=== PATIENT | male | born 1960 | race Caucasian/White ===

== ENCOUNTER → 2017-10-15 08:10 | Outpatient (CLI) | payer OTHER, SELFPAY ==
[2017-10-15 09:41] LABS: Hemoglobin A1C% w Est Avg Glu 8.3 % (4.0-6.0)
[2017-10-15 09:52] LABS: BUN Creatinine Ratio 21.4 (6-22); Calcium 9.1 mg/dL (8.4-10.2); Estimated Glomerular Filt Rate > 60.0 mL/min (>60); Glucose 188 mg/dL (70-100); HEMOLYSIS < 15 (0-50); Potassium 3.8 mmol/L (3.4-5.1); Sodium 140 mmol/L (137-145)
== END ==
PROVIDERS: PCP Internal Medicine; Visit Provider Internal Medicine
DX: E11.65 Type 2 diabetes mellitus with hyperglycemia (principal)
CPT/HCPCS: 36415; 80048; 83036

== ENCOUNTER → 2018-01-14 08:08 | Outpatient (CLI) | payer OTHER, SELFPAY ==
[2018-01-14 09:09] LABS: Hemoglobin A1C% w Est Avg Glu 8.3 % (4.0-6.0)
[2018-01-14 09:18] LABS: BUN Creatinine Ratio 22.5 (6-22); Blood Urea Nitrogen 18 mg/dL (9-20); Calcium 9.4 mg/dL (8.4-10.2); Carbon Dioxide 28 mmol/L (22-32); Chloride 101 mmol/L (98-107); Estimated Glomerular Filt Rate > 60.0 mL/min (>60); Glucose 205 mg/dL (70-100); HEMOLYSIS 20 (0-50); Potassium 3.9 mmol/L (3.4-5.1); Sodium 140 mmol/L (137-145)
[2018-01-14 10:55] LABS: Microalbumi Creatinin Ratio Ur 1313.4 ug/mg CR (<30)
== END ==
PROVIDERS: PCP Internal Medicine; Visit Provider Internal Medicine
DX: E11.65 Type 2 diabetes mellitus with hyperglycemia (principal); E78.2 Mixed hyperlipidemia
CPT/HCPCS: 36415; 80048; 82043; 82570; 83036

== ENCOUNTER → 2018-04-08 08:25 | Outpatient (CLI) | payer OTHER, SELFPAY ==
[2018-04-08 10:53] LABS: Hemoglobin A1C% w Est Avg Glu 9.1 % (4.0-6.0)
[2018-04-08 10:56] LABS: Blood Urea Nitrogen 14 mg/dL (9-20); Calcium 9.2 mg/dL (8.4-10.2); Carbon Dioxide 26 mmol/L (22-32); Chloride 102 mmol/L (98-107); Estimated Glomerular Filt Rate > 60.0 mL/min (>60); Glucose 289 mg/dL (70-100); HEMOLYSIS < 15 (0-50); Potassium 3.8 mmol/L (3.4-5.1); Sodium 141 mmol/L (137-145)
== END ==
PROVIDERS: PCP Internal Medicine; Visit Provider Internal Medicine
DX: E11.65 Type 2 diabetes mellitus with hyperglycemia (principal); E78.2 Mixed hyperlipidemia
CPT/HCPCS: 36415; 80048; 83036

== ENCOUNTER → 2018-05-19 16:59 | Outpatient (CLI) | payer OTHER, SELFPAY ==
--- NOTE | 2018-05-19 17:00 | DI.RAD.S_ITS ---
PROCEDURE: XR SHOULDER RT MIN 2V INDICATIONS: right shoulder pain TECHNIQUE: 3 views of the shoulder were acquired. COMPARISON: None. FINDINGS: Bones: No fractures or dislocations. No suspicious bony lesions. Visualized ribs appear intact. Moderate to severe acromioclavicular degenerative narrowing is present. Soft tissues: No suspicious soft tissue calcifications. IMPRESSION: [id number] degenerative acromioclavicular narrowing. Dictated by: Malorie Pyle M.D. on 05/20/2018 at 8:15 Approved by: Malorie Pyle M.D. on 05/20/2018 at 8:19
== END ==
PROVIDERS: PCP Internal Medicine; Visit Provider Physician Assistant
DX: M25.511 Pain in right shoulder (principal); M19.011 Primary osteoarthritis, right shoulder
CPT/HCPCS: 73030

== ENCOUNTER 2018-05-26 09:14 | Emergency (ER) | payer OTHER, SELFPAY ==
[2018-05-26 09:21] VITALS: BP 157/113; PULSE 70; RESP 20; O2SAT 100; BMI 40.5
--- NOTE | 2018-05-26 09:22 | ED.BACK ---
HPI - Back Pain/Injury General Chief Complaint: Back Pain/Injury Stated Complaint: back pain Time Seen by Provider: 05/26/18 09:21 Source: patient Mode of arrival: ambulatory Limitations: no limitations History of Present Illness HPI Narrative: 58-year-old male here for evaluation of right upper back and shoulder pain. Also complaining of tingling down his arm. States it has been going on for the past month. Has been seen at the walk-in clinic received a shot of Toradol. He states that not help and if his symptoms. No new symptoms over the past month. No rashes. Scheduled to see his primary care doctor in approximately 1 week for this. Related Data Previous Rx's Medication Instructions Recorded fluticasone 2 spray INTRANASAL HS #1 inh 06/20/16 metformin 500 mg tablet 500 mg PO TID #90 tab 04/09/18 celecoxib [Celebrex] 100 mg PO BID #30 cap 05/26/18 cyclobenzaprine 10 mg PO TID PRN #20 tab 05/26/18 tramadol [Ultram] 50 mg PO Q6H PRN #20 tab 05/26/18 Allergies Allergy/AdvReac Type Severity Reaction Status Date / Time oxycodone [OXYCODONE] Allergy Mild becomes Verified 05/26/18 09:21 ill Penicillins [PENICILLINS] Allergy Mild Verified 05/26/18 09:21 Sulfa (Sulfonamide Allergy Mild Verified 05/26/18 09:21 Antibiotics) [SULFA (SULFONAMIDE ANTIBIOTICS)] atorvastatin [From LIPITOR] AdvReac Intermediate muscle Verified 05/26/18 09:21 pains, GIBBONS Review of Systems Constitutional Denies fever(s) and Denies headache(s) ENT Ears, Nose, Mouth, and Throat: Denies headache(s) and Reports neck pain Cardiovascular Denies chest pain and Denies dyspnea Respiratory Denies cough and Denies dyspnea Gastrointestinal Gastrointestinal: Denies abdominal pain, Denies nausea and Denies vomiting Musculoskeletal Reports back pain, Reports myalgias, Reports arthralgias, Reports neck pain, Denies numbness, Reports radiating pain into limb and Reports tingling Integumentary/Breasts Denies lesions and Denies rash Neurologic Denies headache(s), Denies numbness, Denies sensory deficit, Reports tingling and Reports paresthesias Hematologic/Lymphatic Comments: Not on anticoagulation PFSH Medical History Uncontrolled type 2 diabetes mellitus without complication, without long-term current use of insulin (Chronic 06/05/17) Mixed hyperlipidemia (Chronic 03/30/15) Trigeminal neuralgia of left side of face (Chronic) Obstructive sleep apnea syndrome (Chronic 03/30/15) Tinnitus (Chronic ~1989) Prostatitis (Resolved ~2013) Recurrent sinusitis (Resolved) Surgical History Anesthesia (Resolved) Status post hernia repair (~1998) Status post laparoscopic cholecystectomy (~2010) Social History marital status: number of children: 2 household members: spouse lives independently: Yes caregiver/support person: No housing: house pets and animals: Yes education level: master's degree occupational status: employed current occupational exposures/hazards: No eun/yazidism: [employer] travel history: over 6 months ago leisure activities: exercise, art and reading Smoking Status: Former smoker Tobacco: How many years used: 25 Smokeless tobacco user: other quit status: quit date established second hand exposure: Yes (Childhood) alcohol intake: current substance use type: does not use Exam Initial Vital Signs Initial Vital Signs: Vital Signs Pulse Rate 70 05/26/18 09:21 Respiratory Rate 20 05/26/18 09:21 Blood Pressure 157/113 H 05/26/18 09:21 Pulse Oximetry 100 05/26/18 09:21 Const General: cooperative, healthy appearing, No comfortable (Uncomfortable), well developed, well groomed and No acute distress Orientation: alert, awake and oriented x3 HENMT Head: normal to inspection, normocephalic and atraumatic Neck Other: Tenderness to palpation right paraspinal region. Negative Spurling's maneuver Resp Effort & Inspection: normal respiratory effort Auscultation: clear to auscultation bilaterally Cardio Rate: tachycardic Rhythm: regular rhythm Pulses: radial pulses present Back/Spine/Pelvis Other: Tenderness to palpation with muscle fullness over the right rhomboids and right levator scapulae. Skin Lesions: no lesions Rashes: no rashes Neuro General: alert, awake and oriented x3 Cognition: normal cognition Speech: speech normal Sensory Exam: no sensory deficits noted Extrem Other: Decreased range of motion right shoulder secondary to pain Course Orders Ordered: Discontinued Medications Diazepam (Valium) 5 mg PO NOW ONE Stop: 05/26/18 09:45 Last Admin: 05/26/18 10:13 Dose: 5 mg Hydromorphone HCl (Dilaudid) 2 mg IM NOW ONE Stop: 05/26/18 11:10 Last Admin: 05/26/18 11:21 Dose: 2 mg Vital Signs - 8 hr 05/26/18 09:21 05/26/18 10:33 05/26/18 11:54 Temperature 97.6 F 97.7 F Pulse Rate 70 58 L 113 H Respiratory Rate 20 20 19 Blood Pressure 157/113 H Blood Pressure [Left Arm] 146/90 H 179/94 H Pulse Oximetry 100 100 97 MDM - Back Pain/Injury MDM Narrative Medical decision making narrative: Patient received a Toradol injection at the walk-in clinic in the past he states that did nothing for his symptoms. I did do a trigger point injection of his right back with 1% lidocaine and 0.25% Marcaine. This was done at the area of greatest tenderness. He reported no improvement with the symptoms. He was given a Valium every also reports minimal improvement. The patient states that he did not want ?opioid ?pain medication. I informed him that there was not much more I can offer him how to the emergency department if he did not want pain medication. Will send home with a prescription for Flexeril. Will send home with a prescription for Ultram because he did not want something strong ?. Will also have him stop the anti-inflammatories start taking Celebrex. Will hold on x-rays for today. His symptoms have been going on for the past month and I feel that a bony pathology is unlikely. Patient is not allergic to oxycodone he states he just does not taking it. Discharge Plan Departure Patient Disposition: Home Clinical Impression: Spasm of thoracic back muscle Instructions: DI for Muscle Strain Activity Restrictions/Additional Instructions: I recommend you keep your follow-up appointment with your primary doctor in the coming week. I recommend you stop all anti-inflammatories such as Motrin or Naprosyn or ibuprofen and start taking the Celebrex as directed. The Flexeril is a muscle relaxer and this can make you drowsy. Same goes for the Ultram. No driving while taking these medications. Prescriptions: New cyclobenzaprine 10 mg tablet 10 mg PO TID PRN (Reason: muscle spasm) Qty: 20 RF: 0 tramadol [Ultram] 50 mg tablet 50 mg PO Q6H PRN (Reason: pain) Qty: 20 RF: 0 celecoxib [Celebrex] 100 mg capsule 100 mg PO BID Qty: 30 RF: 0 No Action fluticasone 16 GM spray,suspension 2 spray Intranasal HS Qty: 1 RF: 3 metformin 500 mg tablet 500 mg PO TID Qty: 90 RF: 3
[2018-05-26] MEDS: diazePAM 5 MG TABLET PO (10:13)
[2018-05-26 10:33] VITALS: BP 146/90; PULSE 58; RESP 20; TEMP 36.4; O2SAT 100
[2018-05-26] MEDS: HYDROMORPHONE 2 MG INJ IM (11:21)
[2018-05-26 11:54] VITALS: BP 179/94; PULSE 113; RESP 19; TEMP 36.5; O2SAT 97
== END 2018-05-26 12:34 | disposition home or self-care (01) ==
PROVIDERS: Emergency Provider Emergency Medicine; PCP Internal Medicine
DX: M62.830 Muscle spasm of back (principal)
CPT/HCPCS: 96372; 99282; 99283; J1170

== ENCOUNTER → 2018-06-08 13:20 | Outpatient (CLI) | payer OTHER, SELFPAY | PROVIDERS: PCP Internal Medicine; Visit Provider Internal Medicine | DX: M54.12 Radiculopathy, cervical region (principal); Z53.9 Procedure and treatment not carried out, unspecified reason ==

== ENCOUNTER 2018-06-08 14:10 | Emergency (ER) | payer OTHER, SELFPAY ==
[2018-06-08 14:10] VITALS: BP 174/93; PULSE 98; RESP 17; TEMP 36.4; O2SAT 99; BMI 40.6
--- NOTE | 2018-06-08 14:22 | PC.NURSE ---
pt was scheduled for MRI,pt was too big for machine so he didn't have it done. After bringing pt to room 8 he asked for water. I asked him to please wait until the dr could see him and make a decision on tx. Pt refused stated well I'm going to anyway.
--- NOTE | 2018-06-08 14:32 | ED.UPPEXIN ---
HPI - Extremity Injury (Upper) <SHAWNEE Ching - Last Filed: 06/08/18 22:00> General Chief Complaint: Extremity Injury, Upper Stated Complaint: RT SHOULDER PAIN Time Seen by Provider: 06/08/18 14:31 Source: patient Mode of arrival: ambulatory Limitations: no limitations History of Present Illness HPI narrative: 58-year-old male with history of radiculopathy to the thoracic spine here for complaint of pain into his right shoulder for the last month. He was scheduled for an MRI that was ordered by primary care provider Dr. Melgoza today however he states that he was unable to fit in the machine well and could not tolerate the discomfort. He is currently prescribed Dilaudid 2 mg tablets at home and he has been using them sparingly for pain as he does not like the side effects. MRI was unable to be obtained today. No known trauma to the right shoulder. He has been seen for this multiple times and has had multiple different medications prescribed and has not helped. He denies any other concerns or complaints at this timeframe. MD complaint: injury to: right and shoulder Related Data Home Medications Medication Instructions Recorded Confirmed dexamethasone 2 mg PO Q6H 06/08/18 06/08/18 Previous Rx's Medication Instructions Recorded fluticasone 2 spray INTRANASAL HS #1 inh 06/20/16 metformin 500 mg tablet 500 mg PO TID #90 tab 04/09/18 celecoxib [Celebrex] 100 mg PO BID #30 cap 05/26/18 cyclobenzaprine 10 mg PO TID PRN #20 tab 05/26/18 tramadol [Ultram] 50 mg PO Q6H PRN #20 tab 05/26/18 hydromorphone 2 mg tablet 2 mg PO Q4-6H PRN #20 tab 05/31/18 hydromorphone 2 mg PO Q4-6H PRN #15 tab 06/08/18 ondansetron 4 mg PO BID-TID PRN #15 tab 06/08/18 Allergies Allergy/AdvReac Type Severity Reaction Status Date / Time oxycodone [OXYCODONE] Allergy Mild becomes Verified 05/31/18 16:22 ill Penicillins [PENICILLINS] Allergy Mild Verified 05/31/18 16:22 Sulfa (Sulfonamide Allergy Mild Verified 05/31/18 16:22 Antibiotics) [SULFA (SULFONAMIDE ANTIBIOTICS)] atorvastatin [From LIPITOR] AdvReac Intermediate muscle Verified 05/31/18 16:22 pains, GIBBONS Review of Systems <SHAWNEE Ching - Last Filed: 06/08/18 22:00> Constitutional Denies chills, Denies fatigue, Denies fever(s), Denies lethargy and Denies weakness Eyes Denies change in vision, Denies eye discharge, Denies irritation and Denies loss of vision ENT Ears, Nose, Mouth, and Throat: Denies change in voice, Denies neck pain and Denies sore throat Cardiovascular Denies dyspnea and Denies dyspnea on exertion Respiratory Denies cough, Denies dyspnea, Denies dyspnea on exertion and Denies wheezing Gastrointestinal Gastrointestinal: Denies abdominal pain, Denies change in bowel habits, Denies diarrhea, Denies nausea and Denies vomiting Genitourinary Denies hematuria, Denies flank pain, Denies urinary incontinence and Denies urinary urgency Musculoskeletal Denies neck pain Comments: Right shoulder pain Integumentary/Breasts Denies pruritus, Denies erythema, Denies rash and Denies wounds Neurologic Denies confusion, Denies loss of vision and Denies weakness Psychiatric Denies anxiety, Denies confusion, Denies depression, Denies homicidal ideation and Denies suicidal ideation Endocrine Denies fatigue and Denies flushing Allergic/Immunologic Denies wheezing Exam <SHAWNEE Ching - Last Filed: 06/08/18 22:00> Initial Vital Signs Initial Vital Signs: Vital Signs Temperature 97.6 F 06/08/18 14:10 Pulse Rate 98 H 06/08/18 14:10 Respiratory Rate 17 06/08/18 14:10 Blood Pressure 174/93 H 06/08/18 14:10 Pulse Oximetry 99 06/08/18 14:10 Const General: cooperative and well developed Nutritional Appearance: well nourished Orientation: alert, awake, oriented x3 and not confused HENMT Mouth: oral mucosae normal and moist mucous membranes Eyes Conjunctivae: conjunctivae normal Sclera: sclerae normal Pupils: PERRL EOM: EOM intact bilaterally Resp Effort & Inspection: normal respiratory effort, able to speak in complete sentences, no respiratory distress and no use of accessory muscles Auscultation: clear to auscultation bilaterally, no rales, no rhonchi and no wheezes Cardio Rate: regular rate Rhythm: regular rhythm Heart Sounds: no click, no gallops, no murmurs and no rubs Pulses: normal peripheral pulses Skin General: no rashes or lesions noted, No jaundice and No petechiae Neuro General: alert, oriented x3, gait normal and no focal motor deficits Speech: speech normal Extrem General: full ROM, no clubbing, cyanosis or edema, no pedal edema and no calf tenderness Other: Left shoulder/thoracic back area with no signs of trauma. No deformities. Distal sensation is intact. Distal range of motion is intact. Distal pulses are intact. <Jeannette Sevilla DO - Last Filed: 06/09/18 21:53> Initial Vital Signs Initial Vital Signs: Vital Signs Temperature 97.6 F 06/08/18 14:10 Pulse Rate 98 H 06/08/18 14:10 Respiratory Rate 17 06/08/18 14:10 Blood Pressure 174/93 H 06/08/18 14:10 Pulse Oximetry 99 06/08/18 14:10 Course <SHAWNEE Ching - Last Filed: 06/08/18 22:00> Orders Ordered: Discontinued Medications Hydromorphone HCl (Dilaudid) 1 mg IV NOW ONE Stop: 06/08/18 14:48 Last Admin: 06/08/18 15:19 Dose: 1 mg Ondansetron HCl (Zofran) 4 mg IV NOW ONE Stop: 06/08/18 14:48 Last Admin: 06/08/18 15:19 Dose: 4 mg Vital Signs - 8 hr 06/08/18 14:10 06/08/18 15:44 06/08/18 16:37 Temperature 97.6 F Pulse Rate 98 H 102 H 90 Respiratory Rate 17 16 14 Blood Pressure 174/93 H 170/101 H Blood Pressure [Left Arm] 155/104 H Pulse Oximetry 99 98 96 <Jeannette Sevilla DO - Last Filed: 06/09/18 21:53> Orders Ordered: Discontinued Medications Hydromorphone HCl (Dilaudid) 1 mg IV NOW ONE Stop: 06/08/18 14:48 Last Admin: 06/08/18 15:19 Dose: 1 mg Ondansetron HCl (Zofran) 4 mg IV NOW ONE Stop: 06/08/18 14:48 Last Admin: 06/08/18 15:19 Dose: 4 mg Vital Signs - 8 hr 06/08/18 14:10 06/08/18 15:44 06/08/18 16:37 Temperature 97.6 F Pulse Rate 98 H 102 H 90 Respiratory Rate 17 16 14 Blood Pressure 174/93 H 170/101 H Blood Pressure [Left Arm] 155/104 H Pulse Oximetry 99 98 96 MDM - Extremity Injury (Upper) <Saud HolderSHAWNEE frank - Last Filed: 06/08/18 22:00> MDM Narrative Medical decision making narrative: Dilaudid and Zofran were given to him in the emergency room which helped his pain a little bit. Spoke with Dr. Melgoza who is trying to get him a MRI scheduled in the next couple of days at [facility] as a have a larger MRI. He is given refill of his Dilaudid along with Zofran to help with the nausea. MRI as scheduled. Follow up with primary care provider in the next few days after MRI. Return emergency room for any worsening symptoms Discharge Plan Departure Patient Disposition: Home Clinical Impression: Pain in right shoulder Discharge Date/Time: 06/08/18 16:39 Interventions: ED Discharge Assessment Last Done: 06/08/18 16:37 Instructions: DI for Shoulder Pain Activity Restrictions/Additional Instructions: MRI to the right shoulder when scheduled as soon as possible. Use pain medications as prescribed along with ondansetron to help with nausea. Follow up with primary care provider in the next few days for re-evaluation. For any worsening symptoms return to the emergency room. Prescriptions: New hydromorphone 2 mg tablet 2 mg PO Q4-6H PRN (Reason: pain) Qty: 15 RF: 0 ondansetron 4 mg tablet,disintegrating 4 mg PO BID-TID PRN (Reason: nausea and vomiting) Qty: 15 RF: 0 No Action fluticasone 16 GM spray,suspension 2 spray Intranasal HS Qty: 1 RF: 3 dexamethasone 2 mg tablet 2 mg PO Q6H RF: 0 metformin 500 mg tablet 500 mg PO TID Qty: 90 RF: 3 hydromorphone 2 mg tablet 2 mg PO Q4-6H PRN (Reason: pain) Qty: 20 RF: 0 cyclobenzaprine 10 mg tablet 10 mg PO TID PRN (Reason: muscle spasm) Qty: 20 RF: 0 tramadol [Ultram] 50 mg tablet 50 mg PO Q6H PRN (Reason: pain) Qty: 20 RF: 0 celecoxib [Celebrex] 100 mg capsule 100 mg PO BID Qty: 30 RF: 0 Referrals: Brent Melgoza MD [Primary Care Provider] - <Jeannette Sevilla DO - Last Filed: 06/09/18 21:53> Cosign ED Attending Rgoer Attestation: I was immediately available in the department for consultation. Documentation has been reviewed. I agree with assessment and plan.
[2018-06-08] MEDS: ONDANSETRON 4 MG/2 ML INJ IV (15:19)
[2018-06-08] MEDS: HYDROMORPHONE 1 MG INJ IV (15:19)
[2018-06-08 15:44] VITALS: BP 155/104; PULSE 102; RESP 16; O2SAT 98
--- NOTE | 2018-06-08 15:58 | PC.NURSE ---
some confusion about mri to be done in [facility] tomorrow. has been on phone regarding this with josephine
[2018-06-08 16:37] VITALS: BP 170/101; PULSE 90; RESP 14; O2SAT 96
== END 2018-06-08 16:39 | disposition home or self-care (01) ==
PROVIDERS: Emergency Provider Nurse Practitioner Family; PCP Internal Medicine
DX: M25.511 Pain in right shoulder (principal)
CPT/HCPCS: 96374; 96375; 99282; 99284; J1170; J2405

== ENCOUNTER → 2018-06-11 11:57 | Outpatient (CLI) | payer OTHER, SELFPAY ==
--- NOTE | 2018-06-11 12:45 | DI.CT.S_ITS ---
PROCEDURE: CT CERVICAL SPINE WO CON INDICATIONS: Neck and right shoulder pain TECHNIQUE: Noncontrast 3 mm thick sections acquired from the skull base to the T4 level. Sagittal and coronal reformats were then constructed. For radiation dose reduction, the following was used: automated exposure control, adjustment of mA and/or kV according to patient size. COMPARISON: None. FINDINGS: Image quality: Excellent. Bones: No fractures or dislocations. Visualized superior ribs are intact. Reversal of the normal cervical lordosis centered at C5. There is endplate spurring and sclerosis primarily from C4-C7. Moderate narrowing of the C5-C6 disc space and mild narrowing of the C4-C5 and C6-C7 disc space. Trace anterolisthesis of C4 on C5. Mild bony canal narrowing due to ossification of the posterior longitudinal ligament from the level of C4-C6. There is right maxillary sinus disease. 2 cm isoattenuating nodule involving the left lobe of the thyroid on image 56 series 3. This could be further assessed with dedicated ultrasound. IMPRESSION: Mid cervical disc degeneration, most pronounced at C5-C6. Ossification of the posterior longitudinal ligament. Associated minimal canal narrowing at C5-C6 and C6-C7. Reversal of the normal cervical lordosis. Possible left thyroid nodule recommend dedicated thyroid ultrasound for further evaluation. No fracture Dictated by: Oswaldo Harrington M.D. on 06/11/2018 at 12:52 Approved by: Oswaldo Harrington M.D. on 06/11/2018 at 13:03
--- NOTE | 2018-06-11 12:45 | DI.CT.S_ITS ---
PROCEDURE: CT UE RT WO CON INDICATIONS: Right shoulder pain. TECHNIQUE: Noncontrast 1-1.5 mm thick sections acquired from the acromioclavicular joint to the inferior scapula, with coronal and sagittal reformatting. COMPARISON: [facility], CR, XR SHOULDER RT MIN 2V, 05/19/2018, 17:03. FINDINGS: Image quality: Excellent. Bones: No acute fracture or focal osseous destruction. Severe AC joint degeneration. There is mild glenohumeral spurring and subchondral sclerosis. There is anatomic alignment. Incidental focal sclerosis present within the glenoid and neck of the scapula, probably bone island although nonspecific. Small chronic cystic change at the lesser tuberosity. Soft tissues: Visualized portions of the left upper lobe unremarkable. No axillary lymphadenopathy. IMPRESSION: Severe acromioclavicular and mild glenohumeral joint degeneration. Dictated by: Oswaldo Harrington M.D. on 06/11/2018 at 13:15 Approved by: Oswaldo Harrington M.D. on 06/11/2018 at 13:21
== END ==
PROVIDERS: PCP Internal Medicine; Visit Provider Student in an Organized Health Care Education/Training Program
DX: M25.511 Pain in right shoulder (principal); M50.322 Other cervical disc degeneration at C5-C6 level; M48.8X2 Other specified spondylopathies, cervical region; M19.011 Primary osteoarthritis, right shoulder
CPT/HCPCS: 72125; 73200

== ENCOUNTER → 2018-07-12 09:49 | Outpatient (CLI) | payer OTHER, SELFPAY ==
[2018-07-12 10:44] LABS: BUN Creatinine Ratio 21.7 (6-22); Blood Urea Nitrogen 13 mg/dL (9-20); Calcium 9.5 mg/dL (8.4-10.2); Carbon Dioxide 27 mmol/L (22-32); Chloride 100 mmol/L (98-107); Estimated Glomerular Filt Rate > 60.0 mL/min (>60); Glucose 224 mg/dL (70-100); HEMOLYSIS < 15 (0-50); Potassium 4.3 mmol/L (3.4-5.1); Sodium 138 mmol/L (137-145)
[2018-07-12 10:46] LABS: Hemoglobin A1C% w Est Avg Glu 9.9 % (4.0-6.0)
== END ==
PROVIDERS: PCP Internal Medicine; Visit Provider Internal Medicine
DX: E11.65 Type 2 diabetes mellitus with hyperglycemia (principal)
CPT/HCPCS: 36415; 80048; 83036

== ENCOUNTER → 2018-11-04 10:57 | Outpatient (CLI) | payer OTHER, SELFPAY ==
[2018-11-04 12:00] LABS: Bacteria Urine None Seen; WBC Urine None Seen (0-5/HPF)
[2018-11-04 12:05] LABS: Appearance Urine UA CLEAR; Bilirubin Urine UA NEGATIVE (NEGATIVE); Color Urine UA YELLOW; Glucose Urine UA 1+ g/dL (Negative); Ketones Urine UA TRACE (NEGATIVE); Leukocyte Esterase Urine UA NEGATIVE (NEGATIVE); Nitrite Urine UA NEGATIVE (Negative); Occult Blood Urine UA TRACE-LYSED (Negative); Protein Urine UA 3+ (Negative); Specific Gravity Urine UA >=1.030 (1.000-1.035); Urobilinogen Urine UA 0.2 E.U./dL (0.2)
[2018-11-04 12:25] LABS: Calcium Oxalate Crystals Urine Occasional; Culture Indicated Urine Cult Not Indicated; Mucus Urine 1+ (Negative); RBC Urine 0-1/HPF (0-5/HPF); Squamous Epithelial Cell Urine None Seen (0-5/HPF)
[2018-11-04 14:46] LABS: Add Manual Diff / Slide Review NO; Basophils Absolute Auto 100 /uL (0-100); Basophils Percent Auto 1.2 % (0-2); Eosinophils Absolute Auto 700 /uL (0-450); Eosinophils Percent Auto 7.5 % (2-4); Hematocrit 42.2 % (41-53); Hemoglobin 14.9 g/dL (13.5-17.5); Lymphocytes Absolute Auto 2900 /uL (1100-4500); Lymphocytes Percent Auto 28.9 % (25-40); Mean Corpuscular HGB Conc 35.2 % (30-36); Mean Corpuscular Hemoglobin 30.2 PG (26-34); Mean Corpuscular Volume 85.7 fL (80-100); Monocytes Absolute Auto 500 /uL (0-900); Monocytes Percent Auto 4.9 % (3-14); Neutrophils Absolute Auto 5700 /uL (1500-7000); Neutrophils Percent Auto 57.5 % (50-75); Platelet Count 202 X10^3/uL (150-400); Red Blood Cell Count 4.92 X10^6/uL (4.5-5.9); Red Cell Distribution Width 13.7 % (11.6-14.8); White Blood Cell Count 9.9 X10^3/uL (4.5-11.0)
[2018-11-04 14:55] LABS: Creatine Kinase 121 U/L (55-170)
[2018-11-04 16:52] LABS: Lipase 279 U/L (23-300)
== END ==
PROVIDERS: PCP Internal Medicine; Visit Provider Hospitalist
DX: M54.9 Dorsalgia, unspecified (principal); R35.0 Frequency of micturition; M54.5 Low back pain; R82.998 Other abnormal findings in urine; R80.9 Proteinuria, unspecified
CPT/HCPCS: 36415; 81001; 82550; 83690; 85025

== ENCOUNTER → 2018-11-04 15:40 | Outpatient (CLI) | payer OTHER, SELFPAY ==
--- NOTE | 2018-11-04 15:42 | DI.CT.S_ITS ---
PROCEDURE: CT ABDOMEN PELVIS WO CON INDICATIONS: possible kidney stones TECHNIQUE: Noncontrast 5 mm thick sections acquired from the diaphragms to the symphysis. 5 mm thick coronal and sagittal reformats were then performed. For radiation dose reduction, the following was used: automated exposure control, adjustment of mA and/or kV according to patient size. COMPARISON: [facility], CT, ABDOMEN/PELVIS WITH CONTRAST, 11/07/2014, 18:01. FINDINGS: Image quality: Excellent. Lung bases: Lung bases are clear. Heart size is normal. There is a small hiatal hernia. Urinary system: Both kidneys are normal in size. No kidney stones. No hydronephrosis or perinephric fat stranding. Both ureters appear non-dilated throughout their expected courses. Bladder wall thickness is normal; no calcified bladder stones. Prominent prostate with prostatic calcification. Other solid organs: Mild hepatic fatty infiltration. Liver is normal in size. Gallbladder is surgically absent. Pancreas is normal in contours. There is subtle stranding around the pancreatic head. Spleen is normal in size. No adrenal nodules. Peritoneum and bowel: Multiple colonic diverticula are present. No evidence for active diverticulitis. Normal appendix. Unenhanced bowel loops demonstrate normal wall thickness and caliber. No free fluid or air. Nodes and vessels: No retroperitoneal or mesenteric adenopathy by size criteria. Aorta and inferior vena cava are normal in caliber. Abdominal wall: No ventral hernias. Pelvis: No free pelvic fluid. No inguinal hernias or adenopathy. Bones: No suspicious bony lesions. No vertebral body compression fractures. Mild degenerative changes in lumbar spine. IMPRESSION: 1. Noted is small hydronephrosis. 2. Mild fat stranding around the pancreatic head. Please correlate clinically for early pancreatitis. 3. Diverticulosis without diverticulitis. 4. Mild hepatic steatosis. 5. Small hiatal hernia. 6. Prominent prostate with prostatic calcification. The result was discussed with Dr. Daugherty. Dictated by: Jany Bello M.D. on 11/04/2018 at 16:30 Approved by: Jany Bello M.D. on 11/04/2018 at 16:38
== END ==
PROVIDERS: PCP Internal Medicine; Visit Provider Hospitalist
DX: M54.5 Low back pain (principal); R80.9 Proteinuria, unspecified; R82.998 Other abnormal findings in urine; K44.9 Diaphragmatic hernia without obstruction or gangrene; K57.90 Diverticulosis of intestine, part unspecified, without perforation or abscess without bleeding; M47.816 Spondylosis without myelopathy or radiculopathy, lumbar region; K76.0 Fatty (change of) liver, not elsewhere classified; N40.0 Benign prostatic hyperplasia without lower urinary tract symptoms; Z90.49 Acquired absence of other specified parts of digestive tract; M54.9 Dorsalgia, unspecified; R35.0 Frequency of micturition
CPT/HCPCS: 36415; 74176; 81001; 82550; 83690; 85025

== ENCOUNTER → 2018-11-11 08:08 | Outpatient (CLI) | payer OTHER, SELFPAY ==
[2018-11-11 09:49] LABS: BUN Creatinine Ratio 17.5 (6-22); Blood Urea Nitrogen 14 mg/dL (9-20); Calcium 9.6 mg/dL (8.4-10.2); Carbon Dioxide 26 mmol/L (22-32); Chloride 105 mmol/L (98-107); Estimated Glomerular Filt Rate > 60.0 mL/min (>60); Glucose 143 mg/dL (70-100); HEMOLYSIS 22 (0-50); Potassium 4.3 mmol/L (3.4-5.1); Sodium 141 mmol/L (137-145)
== END ==
PROVIDERS: PCP Internal Medicine; Visit Provider Internal Medicine
DX: E11.65 Type 2 diabetes mellitus with hyperglycemia (principal); E06.3 Autoimmune thyroiditis; N28.9 Disorder of kidney and ureter, unspecified
CPT/HCPCS: 36415; 80048; 83036

== ENCOUNTER → 2019-02-02 08:29 | Outpatient (CLI) | payer OTHER, SELFPAY ==
[2019-02-02 10:39] LABS: BUN Creatinine Ratio 17.5 (6-22); Blood Urea Nitrogen 14 mg/dL (9-20); Calcium 9.5 mg/dL (8.4-10.2); Carbon Dioxide 24 mmol/L (22-32); Chloride 103 mmol/L (98-107); Estimated Glomerular Filt Rate > 60.0 mL/min (>60); Glucose 165 mg/dL (70-100); HEMOLYSIS < 15 (0-50); Potassium 4.1 mmol/L (3.4-5.1); Sodium 137 mmol/L (137-145)
[2019-02-02 10:40] LABS: Hemoglobin A1C% w Est Avg Glu 6.9 % (4.0-6.0)
== END ==
PROVIDERS: PCP Internal Medicine; Visit Provider Internal Medicine
DX: E11.65 Type 2 diabetes mellitus with hyperglycemia (principal)
CPT/HCPCS: 36415; 80048; 83036

== ENCOUNTER → 2019-06-03 08:24 | Outpatient (CLI) | payer OTHER, SELFPAY ==
[2019-06-03 08:55] LABS: Hemoglobin A1C% w Est Avg Glu 7.5 % (4.0-6.0)
[2019-06-03 09:13] LABS: Blood Urea Nitrogen 16 mg/dL (9-20); Calcium 9.1 mg/dL (8.4-10.2); Carbon Dioxide 25 mmol/L (22-32); Chloride 102 mmol/L (98-107); Cholesterol 207 mg/dL (140-199); Estimated Glomerular Filt Rate > 60.0 mL/min (>60); Glucose 183 mg/dL (70-100); HDL Cholesterol 29 mg/dL (40-60); HEMOLYSIS 21 (0-50); Sodium 137 mmol/L (137-145)
[2019-06-03 09:23] LABS: Triglycerides 587 mg/dL (35-150)
== END ==
PROVIDERS: PCP Internal Medicine; Visit Provider Internal Medicine
DX: E11.65 Type 2 diabetes mellitus with hyperglycemia (principal); E78.2 Mixed hyperlipidemia; I10 Essential (primary) hypertension
CPT/HCPCS: 36415; 80048; 80061; 83036

== ENCOUNTER → 2019-11-22 08:52 | Outpatient (CLI) | payer OTHER, SELFPAY ==
[2019-11-22 10:15] LABS: Hemoglobin A1C% w Est Avg Glu 7.2 % (4.0-6.0)
[2019-11-22 10:34] LABS: Alanine Aminotransferase 42 IU/L (<50); Albumin 4.4 g/dL (3.5-5.0); Albumin Globulin Ratio 1.6 (1.0-2.8); Alkaline Phosphatase 57 U/L (38-126); Aspartate Aminotransferase 35 IU/L (17-59); BUN Creatinine Ratio 17.1 (6-22); Bilirubin Total 0.3 mg/dL (0.2-1.3); Blood Urea Nitrogen 14 mg/dL (9-20); Calcium 9.7 mg/dL (8.4-10.2); Carbon Dioxide 26 mmol/L (22-32); Chloride 104 mmol/L (98-107); Cholesterol 204 mg/dL (140-199); Estimated Glomerular Filt Rate > 60.0 mL/min (>60); Globulin 2.8 g/dL (1.7-4.1); Glucose 189 mg/dL (70-100); HDL Cholesterol 29 mg/dL (40-60); HEMOLYSIS < 15 (0-50); LDL Cholesterol Calculated 107 mg/dL (<100); Potassium 4.2 mmol/L (3.4-5.1); Sodium 137 mmol/L (137-145); Total Protein 7.2 g/dL (6.3-8.2); Triglycerides 339 mg/dL (35-150)
== END ==
PROVIDERS: PCP Internal Medicine; Referring Provider Internal Medicine; Visit Provider Internal Medicine
DX: E11.65 Type 2 diabetes mellitus with hyperglycemia (principal); E78.2 Mixed hyperlipidemia
CPT/HCPCS: 36415; 80053; 80061; 83036

== ENCOUNTER → 2020-06-01 07:58 | Outpatient (CLI) | payer OTHER, SELFPAY ==
[2020-06-01 08:33] LABS: Hemoglobin A1C% w Est Avg Glu 7.3 % (4.0-6.0)
[2020-06-01 09:22] LABS: Alanine Aminotransferase 31 IU/L (<50); Albumin 4.4 g/dL (3.5-5.0); Albumin Globulin Ratio 1.6 (1.0-2.8); Alkaline Phosphatase 61 U/L (38-126); Aspartate Aminotransferase 30 IU/L (17-59); BUN Creatinine Ratio 24.7 (6-22); Bilirubin Total 0.4 mg/dL (0.2-1.3); Blood Urea Nitrogen 21 mg/dL (9-20); Calcium 9.6 mg/dL (8.4-10.2); Carbon Dioxide 27 mmol/L (22-32); Chloride 102 mmol/L (98-107); Cholesterol 199 mg/dL (140-199); Estimated Glomerular Filt Rate > 60.0 mL/min (>60); Globulin 2.7 g/dL (1.7-4.1); Glucose 125 mg/dL (70-100); HDL Cholesterol 32 mg/dL (40-60); HEMOLYSIS < 15 (0-50); LDL Cholesterol Calculated 100 mg/dL (<100); Potassium 4.1 mmol/L (3.4-5.1); Sodium 137 mmol/L (137-145); Total Protein 7.1 g/dL (6.3-8.2); Triglycerides 333 mg/dL (35-150)
== END ==
PROVIDERS: PCP Internal Medicine; Referring Provider Internal Medicine; Visit Provider Internal Medicine
DX: E11.9 Type 2 diabetes mellitus without complications (principal); E78.2 Mixed hyperlipidemia
CPT/HCPCS: 36415; 80053; 80061; 83036

== ENCOUNTER → 2020-08-14 13:00 | Outpatient (CLI) | payer OTHER, SELFPAY ==
[2020-08-14] MEDS: COVID-19 VACC #1, MRNA(MOD) 100 MCG/0.5 ML VIAL IM (13:28)
== END ==
PROVIDERS: PCP Internal Medicine; Visit Provider Internal Medicine
DX: Z23 Encounter for immunization (principal)
CPT/HCPCS: 0011A; 91301

== ENCOUNTER → 2020-08-31 08:08 | Outpatient (CLI) | payer OTHER, SELFPAY ==
[2020-08-31 08:42] LABS: BUN Creatinine Ratio 21.8 (6-22); Blood Urea Nitrogen 17 mg/dL (9-20); Calcium 9.5 mg/dL (8.4-10.2); Carbon Dioxide 26 mmol/L (22-32); Chloride 105 mmol/L (98-107); Estimated Glomerular Filt Rate > 60.0 mL/min (>60); Glucose 154 mg/dL (70-100); HEMOLYSIS < 15 (0-50); Potassium 4.2 mmol/L (3.4-5.1); Sodium 139 mmol/L (137-145)
== END ==
PROVIDERS: PCP Internal Medicine; Referring Provider Internal Medicine; Visit Provider Internal Medicine
DX: E11.65 Type 2 diabetes mellitus with hyperglycemia (principal); I10 Essential (primary) hypertension
CPT/HCPCS: 36415; 80048; 83036

== ENCOUNTER → 2020-09-06 14:39 | Outpatient (CLI) | payer OTHER, SELFPAY ==
--- NOTE | 2020-09-06 14:40 | DI.CT.S_ITS ---
PROCEDURE: CT KIDNEY URETER BLADDER (KUB) INDICATIONS: Right Flank Pain TECHNIQUE: Noncontrast 5 mm thick sections acquired from the diaphragms to the symphysis. 5 mm thick coronal and sagittal reformats were then performed. For radiation dose reduction, the following was used: automated exposure control, adjustment of mA and/or kV according to patient size. COMPARISON: None. FINDINGS: ABDOMEN: Lung bases: Normal . Mild coronary artery calcifications. Liver: Normal Gallbladder is surgically absent. Bile ducts: Normal Pancreas: Normal Spleen: Normal Adrenal glands: Normal Kidneys: Normal. No urolithiasis identified. No evidence of urinary obstruction Stomach: Normal Bowel: Normal No free fluid or air. Colonic diverticulosis is seen without evidence of acute complication. Normal appendix. Abdominal nodes: Normal Aorta and IVC: Normal in size. Ventral wall: Normal PELVIS: Bladder: Normal. Prostate calcifications incidentally noted. Inguinal: Normal Pelvic nodes: Normal No suspicious bony lesions. No vertebral body compression fractures. IMPRESSION: No urolithiasis or evidence of urinary obstruction Normal appendix No acute abnormality Additional chronic and incidental findings as above. Dictated by: Oswaldo Harrington M.D. on 09/06/2020 at 15:51 Approved by: Oswaldo Harrington M.D. on 09/06/2020 at 16:00
== END ==
PROVIDERS: PCP Internal Medicine; Referring Provider Internal Medicine; Visit Provider Internal Medicine
DX: R10.9 Unspecified abdominal pain (principal); I25.10 Atherosclerotic heart disease of native coronary artery without angina pectoris; K57.90 Diverticulosis of intestine, part unspecified, without perforation or abscess without bleeding; Z90.49 Acquired absence of other specified parts of digestive tract
CPT/HCPCS: 74176

== ENCOUNTER → 2020-09-12 13:05 | Outpatient (CLI) | payer OTHER, SELFPAY ==
[2020-09-12] MEDS: COVID-19 VACC #2, MRNA(MOD) 100 MCG/0.5 ML VIAL IM (13:17)
== END ==
PROVIDERS: PCP Internal Medicine; Visit Provider Internal Medicine
DX: Z23 Encounter for immunization (principal)
CPT/HCPCS: 0012A; 91301

== ENCOUNTER → 2021-09-05 08:22 | Outpatient (CLI) | payer OTHER, SELFPAY ==
[2021-09-05 09:29] LABS: Creatinine Urine Random 208.6 mg/dL
[2021-09-05 09:33] LABS: Hemoglobin A1C% w Est Avg Glu 7.3 % (4.0-6.0)
[2021-09-05 09:33] LABS: Microalbumi Creatinin Ratio Ur 64.7 ug/mg CR (<30); Microalbumin Urine Random 13.5 mg/dL (0-1.6)
[2021-09-05 10:53] LABS: Alanine Aminotransferase 23 IU/L (<50); Albumin 4.5 g/dL (3.5-5.0); Albumin Globulin Ratio 1.5 (1.0-2.8); Alkaline Phosphatase 73 U/L (38-126); Aspartate Aminotransferase 25 IU/L (17-59); BUN Creatinine Ratio 22.2 (6-22); Bilirubin Total 0.5 mg/dL (0.2-1.3); Blood Urea Nitrogen 20 mg/dL (9-20); Calcium 9.6 mg/dL (8.4-10.2); Carbon Dioxide 24 mmol/L (22-32); Chloride 105 mmol/L (98-107); Cholesterol 226 mg/dL (140-199); Estimated Glomerular Filt Rate > 60 mL/min (>60); Globulin 3.1 g/dL (1.7-4.1); Glucose 172 mg/dL (70-100); HDL Cholesterol 33 mg/dL (40-60); HEMOLYSIS < 15 (0-50); LDL Cholesterol Calculated 130 mg/dL (<100); Potassium 4.5 mmol/L (3.4-5.1); Sodium 139 mmol/L (137-145); Total Protein 7.6 g/dL (6.3-8.2); Triglycerides 315 mg/dL (35-150)
[2021-09-05 11:04] LABS: LDL Cholesterol Direct 117 mg/dL (<100)
[2021-09-05 11:21] LABS: Prostate Specific Antigen Scrn 3.83 ng/mL (0.1-4.0)
== END ==
PROVIDERS: PCP Internal Medicine; Referring Provider Internal Medicine; Visit Provider Internal Medicine
DX: E11.9 Type 2 diabetes mellitus without complications (principal); E78.2 Mixed hyperlipidemia; I10 Essential (primary) hypertension; Z12.5 Encounter for screening for malignant neoplasm of prostate
CPT/HCPCS: 36415; 80053; 80061; 82043; 82570; 83036; 83721; G0103

== ENCOUNTER → 2021-10-28 15:11 | Outpatient (CLI) | payer OTHER, SELFPAY | PROVIDERS: PCP Internal Medicine; Visit Provider Physician Assistant | DX: M79.89 Other specified soft tissue disorders (principal) | CPT/HCPCS: 87070; 87075; 87077; 87186; 87205 ==

== ENCOUNTER → 2022-04-04 08:30 | Outpatient (CLI) | payer OTHER, SELFPAY ==
[2022-04-04 11:39] LABS: Hemoglobin A1C% w Est Avg Glu 8.2 % (4.0-6.0)
[2022-04-04 11:48] LABS: Alanine Aminotransferase 37 IU/L (<50); Albumin 4.1 g/dL (3.5-5.0); Albumin Globulin Ratio 1.5 (1.0-2.8); Alkaline Phosphatase 70 U/L (38-126); Aspartate Aminotransferase 28 IU/L (17-59); BUN Creatinine Ratio 18.6 (6-22); Bilirubin Total 0.6 mg/dL (0.2-1.3); Blood Urea Nitrogen 16 mg/dL (9-20); Calcium 9.2 mg/dL (8.4-10.2); Carbon Dioxide 26 mmol/L (22-32); Chloride 100 mmol/L (98-107); Cholesterol 193 mg/dL (140-199); Estimated Glomerular Filt Rate > 60 mL/min (>60); Globulin 2.8 g/dL (1.7-4.1); Glucose 154 mg/dL (80-110); HDL Cholesterol 29 mg/dL (40-60); HEMOLYSIS < 15 (0-50); LDL Cholesterol Calculated 86 mg/dL (<100); Potassium 4.5 mmol/L (3.4-5.1); Sodium 137 mmol/L (137-145); Total Protein 6.9 g/dL (6.3-8.2); Triglycerides 388 mg/dL (35-150)
[2022-04-04 11:59] LABS: LDL Cholesterol Direct 94 mg/dL (<100)
== END ==
PROVIDERS: PCP Internal Medicine; Referring Provider Internal Medicine; Visit Provider Internal Medicine
DX: E78.2 Mixed hyperlipidemia (principal); I10 Essential (primary) hypertension
CPT/HCPCS: 36415; 80053; 80061; 83036; 83721

== ENCOUNTER → 2022-07-04 08:18 | Outpatient (CLI) | payer OTHER, SELFPAY ==
[2022-07-04 09:15] LABS: Hemoglobin A1C% w Est Avg Glu 8.9 % (4.0-6.0)
[2022-07-04 09:49] LABS: Blood Urea Nitrogen 16 mg/dL (9-20); Calcium 9.1 mg/dL (8.4-10.2); Carbon Dioxide 27 mmol/L (22-32); Chloride 98 mmol/L (98-107); Estimated Glomerular Filt Rate > 60 mL/min (>60); Glucose 200 mg/dL (80-110); HEMOLYSIS < 15 (0-50); Potassium 4.1 mmol/L (3.4-5.1); Sodium 136 mmol/L (137-145)
== END ==
PROVIDERS: PCP Internal Medicine; Referring Provider Internal Medicine; Visit Provider Internal Medicine
DX: E11.9 Type 2 diabetes mellitus without complications (principal); I10 Essential (primary) hypertension
CPT/HCPCS: 36415; 80048; 83036

== ENCOUNTER → 2023-02-23 08:11 | Outpatient (CLI) | payer OTHER, SELFPAY ==
[2023-02-23 09:18] LABS: Hemoglobin A1C% w Est Avg Glu 8.6 % (4.0-6.0)
[2023-02-23 09:31] LABS: Alanine Aminotransferase 32 IU/L (<50); Albumin 4.2 g/dL (3.5-5.0); Albumin Globulin Ratio 1.4 (1.0-2.8); Alkaline Phosphatase 71 U/L (38-126); Aspartate Aminotransferase 28 IU/L (17-59); BUN Creatinine Ratio 18.5 (6-22); Bilirubin Total 0.7 mg/dL (0.2-1.3); Blood Urea Nitrogen 15 mg/dL (9-20); Calcium 9.8 mg/dL (8.4-10.2); Carbon Dioxide 24 mmol/L (22-32); Chloride 101 mmol/L (98-107); Cholesterol 252 mg/dL (140-199); Estimated Glomerular Filt Rate > 60 mL/min (>60); Glucose 214 mg/dL (80-110); HDL Cholesterol 36 mg/dL (40-60); HEMOLYSIS < 15 (0-50); Potassium 4.1 mmol/L (3.4-5.1); Sodium 134 mmol/L (137-145); Total Protein 7.2 g/dL (6.3-8.2); Triglycerides 516 mg/dL (35-150)
[2023-02-23 09:42] LABS: LDL Cholesterol Direct 95 mg/dL (<100)
[2023-02-24 10:36] LABS: Fecal Immunochemical Test Negative (Negative)
== END ==
PROVIDERS: PCP Internal Medicine; Referring Provider Internal Medicine; Visit Provider Internal Medicine
DX: Z12.11 Encounter for screening for malignant neoplasm of colon (principal); E11.9 Type 2 diabetes mellitus without complications; E78.2 Mixed hyperlipidemia; I10 Essential (primary) hypertension
CPT/HCPCS: 36415; 80053; 80061; 82274; 83036; 83721

== ENCOUNTER → 2023-06-26 08:27 | Outpatient (CLI) | payer OTHER, SELFPAY ==
[2023-06-26 09:26] LABS: Hemoglobin A1C% w Est Avg Glu 7.9 % (4.0-6.0)
[2023-06-26 09:47] LABS: Alanine Aminotransferase 25 IU/L (<50); Albumin 4.3 g/dL (3.5-5.0); Albumin Globulin Ratio 1.4 (1.0-2.8); Alkaline Phosphatase 72 U/L (38-126); Aspartate Aminotransferase 23 IU/L (17-59); BUN Creatinine Ratio 24.1 (6-22); Bilirubin Total 0.9 mg/dL (0.2-1.3); Blood Urea Nitrogen 20 mg/dL (9-20); Calcium 9.7 mg/dL (8.4-10.2); Carbon Dioxide 22 mmol/L (22-32); Chloride 104 mmol/L (98-107); Cholesterol 233 mg/dL (140-199); Estimated Glomerular Filt Rate > 60 mL/min (>60); Globulin 3.1 g/dL (1.7-4.1); Glucose 169 mg/dL (80-110); HDL Cholesterol 33 mg/dL (40-60); HEMOLYSIS < 15 (0-50); LDL Cholesterol Calculated 128 mg/dL (<100); Potassium 4.1 mmol/L (3.4-5.1); Sodium 136 mmol/L (137-145); Total Protein 7.4 g/dL (6.3-8.2); Triglycerides 358 mg/dL (35-150)
[2023-06-26 09:58] LABS: LDL Cholesterol Direct 116 mg/dL (<100)
[2023-06-26 10:15] LABS: Prostate Specific Antigen Scrn 3.72 ng/mL (0.1-4.0)
[2023-06-26 10:30] LABS: Creatinine Urine Random 100.7 mg/dL
[2023-06-26 10:36] LABS: Microalbumi Creatinin Ratio Ur 93.3 ug/mg CR (<30); Microalbumin Urine Random 9.4 mg/dL (0-1.6)
== END ==
LOC: LAB 08:28
PROVIDERS: PCP Internal Medicine; Referring Provider Internal Medicine; Visit Provider Internal Medicine
DX: Z12.5 Encounter for screening for malignant neoplasm of prostate (principal); E11.9 Type 2 diabetes mellitus without complications; I10 Essential (primary) hypertension; E78.2 Mixed hyperlipidemia
CPT/HCPCS: 36415; 80053; 80061; 82043; 82570; 83036; 83721; G0103

== ENCOUNTER → 2023-10-23 08:43 | Outpatient (CLI) | payer OTHER, SELFPAY ==
[2023-10-23 09:38] LABS: Hemoglobin A1C% w Est Avg Glu 8.1 % (4.0-6.0)
[2023-10-23 09:47] LABS: BUN Creatinine Ratio 26.1 (6-22); Blood Urea Nitrogen 23 mg/dL (9-20); Calcium 9.7 mg/dL (8.4-10.2); Carbon Dioxide 27 mmol/L (22-32); Chloride 104 mmol/L (98-107); Estimated Glomerular Filt Rate > 60 mL/min (>60); Glucose 161 mg/dL (80-110); HEMOLYSIS < 15 (0-50); Potassium 4.4 mmol/L (3.4-5.1); Sodium 137 mmol/L (137-145)
== END ==
LOC: LAB 08:44
PROVIDERS: PCP Internal Medicine; Referring Provider Internal Medicine; Visit Provider Internal Medicine
DX: E11.9 Type 2 diabetes mellitus without complications (principal); I10 Essential (primary) hypertension
CPT/HCPCS: 36415; 80048; 83036

== ENCOUNTER → 2024-01-06 08:49 | Outpatient (CLI) | payer OTHER, SELFPAY ==
--- NOTE | 2024-01-06 08:50 | DI.CT.S_ITS ---
PROCEDURE: CT SINUS SCREEN WO CON INDICATIONS: CHRONIC PANSINUSITIS TECHNIQUE: Noncontrast 3.0 mm axial images acquired from the frontal sinuses to the mid-sella, with coronal and sagittal reformats. For radiation dose reduction, the following was used: automated exposure control, adjustment of mA and/or kV according to patient size. COMPARISON: None. FINDINGS: Image quality: Excellent. Maxillary Sinuses: Trace mucosal thickening bilaterally. Ethmoid Air Cells: No bony remodeling or destruction. Mild sinus disease within the left ethmoid air cells. Sphenoid Sinuses: No bony remodeling or destruction. Sinuses are clear. The sphenoid ethmoid recesses are patent. Frontal Sinuses: No bony remodeling or destruction. Sinuses are clear. The frontal ethmoid recesses are patent. Ostiomeatal Complexes: Ostiomeatal complexes are patent. Miscellaneous: Bilateral lens replacement. No león bullosa. S shaped nasal septum. IMPRESSION: 1. Mild sinus disease within both maxillary sinuses and the left ethmoid sinus. The paranasal outflow tracts are patent. Dictated by: Castillo Oquendo M.D. on 01/06/2024 at 12:48 Approved by: Castillo Oquendo M.D. on 01/06/2024 at 13:14
== END ==
LOC: CT 08:49
PROVIDERS: PCP Internal Medicine; Referring Provider Otolaryngology; Visit Provider Otolaryngology
DX: J32.4 Chronic pansinusitis (principal)
CPT/HCPCS: 70486

== ENCOUNTER → 2024-02-12 07:13 | Outpatient (CLI) | payer OTHER, SELFPAY ==
[2024-02-12 08:39] LABS: Hemoglobin A1C% w Est Avg Glu 6.2 % (4.0-6.0)
[2024-02-12 08:53] LABS: BUN Creatinine Ratio 20.9 (6-22); Blood Urea Nitrogen 18 mg/dL (9-20); Calcium 9.6 mg/dL (8.4-10.2); Carbon Dioxide 25 mmol/L (22-32); Chloride 104 mmol/L (98-107); Estimated Glomerular Filt Rate > 60 mL/min (>60); Glucose 123 mg/dL (80-110); HEMOLYSIS < 15 (0-50); Potassium 4.1 mmol/L (3.4-5.1); Sodium 138 mmol/L (137-145)
== END ==
PROVIDERS: PCP Internal Medicine; Referring Provider Internal Medicine; Visit Provider Internal Medicine
DX: E11.9 Type 2 diabetes mellitus without complications (principal); I10 Essential (primary) hypertension
CPT/HCPCS: 36415; 80048; 83036

== ENCOUNTER → 2024-05-06 07:06 | Outpatient (CLI) | payer OTHER, SELFPAY ==
[2024-05-06 08:40] LABS: Hemoglobin A1C% w Est Avg Glu 6.1 % (4.0-6.0)
[2024-05-06 08:56] LABS: Alanine Aminotransferase 19 IU/L (<50); Albumin Globulin Ratio 1.4 (1.0-2.8); Alkaline Phosphatase 72 U/L (38-126); Aspartate Aminotransferase 20 IU/L (17-59); BUN Creatinine Ratio 23.5 (6-22); Bilirubin Total 0.6 mg/dL (0.2-1.3); Blood Urea Nitrogen 19 mg/dL (9-20); Calcium 9.3 mg/dL (8.4-10.2); Carbon Dioxide 26 mmol/L (22-32); Chloride 104 mmol/L (98-107); Cholesterol 200 mg/dL (140-199); Estimated Glomerular Filt Rate > 60 mL/min (>60); Globulin 2.8 g/dL (1.7-4.1); Glucose 106 mg/dL (80-110); HDL Cholesterol 32 mg/dL (40-60); HEMOLYSIS < 15 (0-50); LDL Cholesterol Calculated 106 mg/dL (<100); Potassium 4.1 mmol/L (3.4-5.1); Sodium 135 mmol/L (137-145); Total Protein 6.8 g/dL (6.3-8.2); Triglycerides 309 mg/dL (35-150)
== END ==
PROVIDERS: PCP Internal Medicine; Referring Provider Internal Medicine; Visit Provider Internal Medicine
DX: E11.9 Type 2 diabetes mellitus without complications (principal); I10 Essential (primary) hypertension
CPT/HCPCS: 36415; 80053; 80061; 83036

== ENCOUNTER → 2024-11-04 07:11 | Outpatient (CLI) | payer OTHER, SELFPAY ==
[2024-11-04 09:07] LABS: Alanine Aminotransferase 22 IU/L (<50); Albumin 4.2 g/dL (3.5-5.0); Albumin Globulin Ratio 1.6 (1.0-2.8); Alkaline Phosphatase 78 U/L (38-126); Aspartate Aminotransferase 25 IU/L (17-59); BUN Creatinine Ratio 20.3 (6-22); Bilirubin Total 0.7 mg/dL (0.2-1.3); Blood Urea Nitrogen 16 mg/dL (9-20); Calcium 9.4 mg/dL (8.4-10.2); Carbon Dioxide 23 mmol/L (22-32); Chloride 106 mmol/L (98-107); Cholesterol 170 mg/dL (140-199); Estimated Glomerular Filt Rate > 60 mL/min (>60); Globulin 2.6 g/dL (1.7-4.1); Glucose 118 mg/dL (70-99); HDL Cholesterol 29 mg/dL (40-60); HEMOLYSIS < 15 (0-50); LDL Cholesterol Calculated 82 mg/dL (<100); Potassium 4.3 mmol/L (3.4-5.1); Sodium 138 mmol/L (137-145); Total Protein 6.8 g/dL (6.3-8.2); Triglycerides 293 mg/dL (35-150)
[2024-11-04 09:23] LABS: Hemoglobin A1C% w Est Avg Glu 6.3 % (4.0-6.0)
[2024-11-04 09:39] LABS: Prostate Specific Antigen Scrn 3.76 ng/mL (0.1-4.0)
[2024-11-05 10:08] LABS: Creatinine Urine Random 51.19 mg/dL
[2024-11-05 10:13] LABS: Microalbumin Urine Random 1.4 mg/dL (0-1.6)
[2024-12-01 08:36] LABS: Fecal Immunochemical Test Negative (Negative)
== END ==
PROVIDERS: PCP Internal Medicine; Referring Provider Internal Medicine; Visit Provider Internal Medicine
DX: Z12.5 Encounter for screening for malignant neoplasm of prostate (principal); E11.9 Type 2 diabetes mellitus without complications; I10 Essential (primary) hypertension; E78.2 Mixed hyperlipidemia
CPT/HCPCS: 36415; 80053; 80061; 82043; 82274; 82570; 83036; G0103

== ENCOUNTER → 2025-05-05 09:22 | Outpatient (CLI) | payer OTHER, SELFPAY ==
[2025-05-05 10:17] LABS: Alanine Aminotransferase 20 IU/L (<50); Albumin 4.3 g/dL (3.5-5.0); Albumin Globulin Ratio 1.5 (1.0-2.8); Alkaline Phosphatase 79 U/L (38-126); Blood Urea Nitrogen 17 mg/dL (9-20); Calcium 9.4 mg/dL (8.4-10.2); Carbon Dioxide 26 mmol/L (22-32); Chloride 102 mmol/L (98-107); Estimated Glomerular Filt Rate > 60 mL/min (>60); Globulin 2.8 g/dL (1.7-4.1); Glucose 136 mg/dL (70-99); HEMOLYSIS < 15 (0-50); Potassium 4.2 mmol/L (3.4-5.1); Sodium 138 mmol/L (137-145); Total Protein 7.1 g/dL (6.3-8.2)
[2025-05-05 10:30] LABS: Hemoglobin A1C% w Est Avg Glu 6.4 % (4.0-6.0)
== END ==
PROVIDERS: PCP Internal Medicine; Referring Provider Internal Medicine; Visit Provider Internal Medicine
DX: E11.9 Type 2 diabetes mellitus without complications (principal); I10 Essential (primary) hypertension
CPT/HCPCS: 36415; 80053; 83036